=== PATIENT | male | born 1985 | race Caucasian/White ===

== ENCOUNTER 2021-04-22 17:35 | Emergency (ER) | payer OTHER, SELFPAY ==
--- NOTE | 2021-04-22 | ECG_ITS ---
Test Reason : GENERAL MEDICAL Blood Pressure : / mmHG Vent. Rate : 049 BPM Atrial Rate : 049 BPM P-R Int : 158 ms QRS Dur : 100 ms QT Int : 414 ms P-R-T Axes : 070 074 041 degrees QTc Int : 373 ms Sinus bradycardia with sinus arrhythmia Incomplete right bundle branch block Cannot rule out Anterior infarct , age undetermined Abnormal ECG No previous ECGs available Referred By: Generic ED Physician Electronically Signed By:SHIRLEY VELÁSQUEZ MD
[2021-04-22 18:43] VITALS: BP 155/89; PULSE 45; RESP 18; TEMP 36.6; O2SAT 100; BMI 23.7
[2021-04-22 19:27] LABS: MANUAL DIFF FLAG NO
[2021-04-22 19:37] LABS: Basophils Percent Auto 0.3 % (0-2); Eosinophils Absolute Auto 0.1 X10*3/uL (0.0-0.4); Eosinophils Percent Auto 1.6 % (0-4); Hematocrit 42.9 % (42-52); Hemoglobin 14.7 g/dl (14.0-18.0); Imm Gran Abs Auto 0.01 X10*3/uL (0.00-0.03); Imm Gran Pct Auto 0.2 % (0.0-0.4); Lymphocytes Absolute Auto 2.6 X10*3/uL (1.2-4.9); Mean Corpuscular HGB Conc 34.3 g/dl (31.0-36.0); Mean Corpuscular Hemoglobin 30.9 pg (27.0-33.0); Mean Corpuscular Volume 90.1 fL (80-98); Monocytes Absolute Auto 0.8 X10*3/uL (0.1-1.2); Monocytes Percent Auto 12.6 % (2-11); Neutrophils Absolute Auto 2.8 X10*3/uL (2.0-8.3); Neutrophils Percent Auto 44.3 % (45-73); Platelet Count 201 X10*3/uL (160-400); Red Blood Count 4.76 X10*6/uL (4.60-5.80); Red Cell Distribution Width 12.8 % (11.0-16.0); White Blood Count 6.4 X10*3/uL (4.8-10.8)
[2021-04-22 19:56] LABS: Alanine Aminotransferase 17 U/L (0-40); Albumin Level 4.8 g/dL (3.5-5.0); Alkaline Phosphatase 54 U/L (39-117); Anion Gap 12 (12-20); Aspartate Amino Transferase 20 U/L (5-37); Bilirubin Total 0.5 mg/dL (0.0-1.0); Blood Urea Nitrogen 12 mg/dL (9-16); Calcium 10.4 mg/dL (8.4-10.2); Carbon Dioxide 30 mmol/L (22-29); Chloride 103 mmol/L (96-108); Creatinine Clr Calc Pharmacy 109.9; Estimated Glomerular Filt Rate > 60; Glucose Random 91 mg/dL (60-115); Potassium 4.1 mmol/L (3.3-5.1); Sodium 141 mmol/L (135-145); Total Protein 7.2 g/dL (6.5-8.0)
[2021-04-22 23:11] LABS: Troponin-I High Sensitivity < 3.5 ng/L (<3.5-35.0)
--- NOTE | 2021-04-22 23:20 | ED_ITS ---
HPI - General Adult General Chief complaint: General Medical Stated complaint: vomiting Time Seen by Provider: 04/22/21 22:06 Source: patient Mode of arrival: ambulatory Limitations: no limitations History of Present Illness HPI narrative: Patient comes emergency room complaining of epigastric burning sensation, vomiting, decreased p.o. intake. Patient denies vomiting blood, no black stool. Patient admits that he drinks alcohol daily and his intake has gradually increased. Patient denies fever chills Related Data Previous Rx's Medication Instructions Recorded hyoscyamine sulfate 0.125 mg PO QID PRN #10 tab 04/23/21 ondansetron HCl [Zofran] 4 mg PO Q8H PRN #10 tab 04/23/21 Allergies Allergy/AdvReac Type Severity Reaction Status Date / Time No Known Allergies Allergy Verified 04/22/21 18:42 Review of Systems Review of Systems: Constitutional : No Weight loss, No Fever, No Chills, No Night Sweats, No Fatigue, No Malaise ENT/Mouth : No Hearing loss, No Ear Pain, No Nasal Congestion, No Sinus Pain, No Hoarseness, No sore throat, No Rhinorrhea, No Swallowing Difficulty Eyes: No Eye Pain, No Swelling, No Redness, No Foreign Body, No Discharge, No Vision Changes Cardiovascular : No Chest Pain, No SOB, No Dyspnea on Exertion, No Orthopnea, No Edema, No Palpitations Respiratory : No Cough, No Sputum, No Wheezing, No Smoke Exposure, No Dyspnea Gastrointestinal : Complaining of nausea and vomiting, No Diarrhea, No Constipation, complaining of epigastric burning sensation, No Hematochezia, No Melena Genitourinary : no irregular bleeding, No Dysuria, No Urinary Frequency, No Hematuria, No Urinary Incontinence, No Urgency, No Flank Pain, No Urinary Flow Changes, No Hesitancy Musculoskeletal : No joint pain, No Myalgias, No Joint Swelling Skin : No Skin Lesions, No rash Neuro : No Weakness, No Numbness, No Paresthesias, No Loss of Consciousness, No Dizziness, No Headache Psych : No Anxiety/Panic, No Depression, No SI/HI/AH/VH, No Social Issues, Heme/Lymph: No Bruising, No Bleeding,No Lymphadenopathy Endocrine : No Polyuria, No Polydipsia, No Temperature Intolerance PMFSH Past Medical History Medical History No pertinent past medical history Social History Social History Advance Directives: No Advance Directives Information Provided: No Physical Exam Vital Signs: Vital Signs: Last Vital Signs Temp 97.9 F 04/22/21 18:43 Pulse 45 L 04/22/21 18:43 Resp 18 04/22/21 18:43 BP 155/89 H 04/22/21 18:43 Pulse Ox 100 04/22/21 18:43 Body Mass Index 23.7 Appearance: Alert. Oriented X3. No acute distress. Well-appearing Eyes: Pupils equal, round and reactive to light. ENT: Pharynx normal. Neck: Normal inspection. Neck supple. No lymph nodes noted. No crepitus CVS: Normal heart rate and rhythm. Pulses normal. Normal S1 and S2 Respiratory: No respiratory distress. Breath sounds normal. No Wheezing. No rales Abdomen: Soft and nontender. No rigidity. No distention. good BS x4 Skin: Skin warm and dry. Normal skin color. Normal skin turgor. Extremities: No lower extremity edema. No Lacerations. No Rash Neuro: Oriented X 3. No motor deficit. No sensory deficit. Moving all extermities. No slurred speech. Course Course Course Narrative: Patient receive a GI cocktail, patient stay for he feels a bit better, still burping, no abdominal pain. Medical Decision Making Lab Data Result diagrams: 04/22/21 19:17 04/22/21 19:17 Labs: Lab Results 04/22/21 04/22/21 04/22/21 Range/Units 19:17 19:17 22:27 WBC 6.4 (4.8-10.8) X10*3/uL RBC 4.76 (4.60-5.80) X10*6/uL Hgb 14.7 (14.0-18.0) g/dl Hct 42.9 (42-52) % MCV 90.1 (80-98) fL MCH 30.9 (27.0-33.0) pg MCHC 34.3 (31.0-36.0) g/dl RDW 12.8 (11.0-16.0) % Plt Count 201 (160-400) X10*3/uL MPV 10.0 (9.4-12.4) fL Immature Gran % (Auto) 0.2 (0.0-0.4) % Neut % (Auto) 44.3 L (45-73) % Lymph % (Auto) 41.0 H (20-40) % [place] % (Auto) 12.6 H (2-11) % Eos % (Auto) 1.6 (0-4) % Baso % (Auto) 0.3 (0-2) % Lymph # (Auto) 2.6 (1.2-4.9) X10*3/uL [place] # (Auto) 0.8 (0.1-1.2) X10*3/uL Eos # (Auto) 0.1 (0.0-0.4) X10*3/uL Baso # (Auto) 0.0 (0.0-0.2) X10*3/uL Abs Immat Gran (auto) 0.01 (0.00-0.03) X10*3/uL Absolute Neuts (auto) 2.8 (2.0-8.3) X10*3/uL Absolute Nucleated RBC 0.000 (0.0-0.012) X10*3/uL Nucleated RBC % (auto) 0.0 (0.0-0.2) /100WBC Sodium 141 (135-145) mmol/L Potassium 4.1 (3.3-5.1) mmol/L Chloride 103 (96-108) mmol/L Carbon Dioxide 30 H (22-29) mmol/L Anion Gap 12 (12-20) BUN 12 (9-16) mg/dL Creatinine 1.01 (0.5-1.4) mg/dL Estim Creat Clear Calc 109.9 Estimated GFR > 60 Random Glucose 91 (60-115) mg/dL Calcium 10.4 H (8.4-10.2) mg/dL Total Bilirubin 0.5 (0.0-1.0) mg/dL AST 20 (5-37) U/L ALT 17 (0-40) U/L Alkaline Phosphatase 54 (39-117) U/L Troponin I High Sens < 3.5 (<3.5-35.0) ng/L Total Protein 7.2 (6.5-8.0) g/dL Albumin 4.8 (3.5-5.0) g/dL Discharge Plan Discharge Clinical Impression: Dyspepsia Patient Disposition: Home, Self-Care Instructions: Abdominal Pain (ED) Additional Instructions: Please follow-up with your primary care physician tomorrow. If you have any worsening or new symptoms, please return to the emergency room or call 911 Prescriptions: New hyoscyamine sulfate 0.125 mg tablet,disintegrating 0.125 mg PO QID PRN (Reason: dyspepsia) Qty: 10 RF: 0 ondansetron HCl [Zofran] 4 mg tablet 4 mg PO Q8H PRN (Reason: nausea and vomiting) Qty: 10 RF: 0
[2021-04-22] MEDS: Magnesium Hydrox/Alum Hydrox 30 ML ORAL.SUSP PO (23:44)
[2021-04-22] MEDS: Lidocaine HCl Viscous 2 % 15 ML SOLUTION MUCOUS MEM (23:45)
[2021-04-23 00:35] VITALS: BP 144/84; PULSE 61; RESP 16; TEMP 36.6; O2SAT 97
== END 2021-04-23 00:36 | disposition home or self-care (01) ==
PROVIDERS: Emergency Provider Emergency Medicine
DX: R10.13 Epigastric pain (principal)
CPT/HCPCS: 36415; 80053; 84484; 85025; 93005; 99283

== ENCOUNTER 2021-05-15 08:51 | Inpatient (IN) | payer OTHER, SELFPAY ==
[2021-05-15] VITALS (8 sets, daily range): BP systolic 125–140; BP diastolic 70–90; PULSE 38–50; RESP 13–18; TEMP 36.3–36.8; O2SAT 96–99; BMI 23.3
--- NOTE | ~2021-05-15 | XR_ITS ---
EXAMINATION: XR CHEST CLINICAL INFORMATION: Dizziness. Rule out pneumonia COMPARISON: None TECHNIQUE: Frontal view of the chest was obtained. FINDINGS: The lungs are well-expanded and clear of acute process. There is a 7 mm nodule left upper lobe and the fifth posterior interspace. Heart size and pulmonary vascularity is normal. No gross bony abnormality seen. XR/XR chest 1V IMPRESSION: No acute cardiopulmonary process seen. 5 mm nodule left upper lobe question artifact versus primary lung nodule. Further evaluation with lateral view and a lordotic view is recommended.
--- NOTE | ~2021-05-15 | MR_ITS ---
EXAMINATION: MR BRAIN WITHOUT CONTRAST CLINICAL INFORMATION: Dizziness. COMPARISON: None. TECHNIQUE: Multiplanar, multisequence imaging of the brain was performed without contrast. FINDINGS: No diffusion abnormalities are identified to suggest an acute or subacute infarct. The ventricles are normal in size. No mass effect or midline shift is seen. No brain parenchymal signal abnormality is noted. No extra-axial fluid collections are seen. The brainstem and cerebellum are normal. The gradient refocused acquisition is normal. The craniovertebral junction, marrow signal, and midline structures are normal. The major intracranial flow voids at the level of the [place] are preserved. The dural venous sinus flow voids are maintained. There are retention cysts in the dependent right maxillary sinus with mild ethmoid sinus mucosal thickening. The mastoid air cells are well aerated. MR/MR head/brain wo con IMPRESSION: Normal MRI of the brain. No acute process.
--- NOTE | 2021-05-15 09:54 | ECG_ITS ---
Test Reason : SOB Blood Pressure : / mmHG Vent. Rate : 035 BPM Atrial Rate : 035 BPM P-R Int : 170 ms QRS Dur : 098 ms QT Int : 468 ms P-R-T Axes : 070 070 036 degrees QTc Int : 357 ms Marked sinus bradycardia Possible Left atrial enlargement Incomplete right bundle branch block Abnormal ECG When compared with ECG of 22-APR-2021, Heart rate has decreased Referred By: Gordon Chisholm Electronically Signed By:GRETCHEN SCOTT
--- NOTE | 2021-05-15 09:56 | ED.DIZZY ---
HPI - Dizziness General Chief Complaint: Dizziness Stated Complaint: dizzy Time Seen by Provider: 05/15/21 09:54 Source: patient and family Mode of arrival: ambulatory Limitations: no limitations History of Present Illness HPI Narrative: 36-year-old male came in for evaluation of dizziness for few weeks. For the past 4-5 weeks patient been having dizziness/lightheadedness, almost going to faint, has no energy and lack of concentration, patient was seen and evaluated in the emergency department 3 weeks ago for similar symptoms. Patient was seen by his PCP recently and order CT scan of the head [address] is unremarkable. Patient normally drink alcohol daily has not been drinking for the past few days. Related Data Previous Rx's Medication Instructions Recorded hyoscyamine sulfate 0.125 mg 0.125 mg PO QID PRN #10 tab 04/23/21 disintegrating tablet ondansetron HCl 4 mg tablet 4 mg PO Q8H PRN #10 tab 04/23/21 (Zofran) Allergies Allergy/AdvReac Type Severity Reaction Status Date / Time No Known Allergies Allergy Verified 04/22/21 18:42 Review of Systems Review of Systems: All other systems are reviewed and are negative Constitutional: Reports as per HPI and Reports no additional constitutional complaints Eyes: Reports as per HPI and Reports no additional eye complaints Reports system reviewed and no additional complaints, except as documented Cardiovascular: Reports as per HPI and Reports no additional cardiovascular complaints Respiratory: Reports as per HPI and Reports no additional respiratory complaints Gastrointestinal: Reports as per HPI and Reports no additional gastrointestinal complaints Genitourinary: Reports no additional female genitourinary complaints Musculoskeletal: Reports no additional musculoskeletal complaints Skin/Breast: Reports system reviewed and no additional complaints, except as docu Psychiatric: Reports no additional psychiatric complaints Endocrine: Reports no additional endocrine complaints Hematologic/Lymphatic: Reports no additional hematologic/lymphatic complaints Allergic/Immunologic: Reports no additional allergic/immunologic complaints Reports system reviewed and no additional complaints, except as documented and Reports Abnormal speech present [facility] Past Medical History Medical History No pertinent past medical history Social History Social History Alcohol intake: current Alcohol intake frequency: 3 or more drinks per day Alcohol type: hard liquor Patient Tobacco Use Status: Current everyday Tobacco user Use of substances other than those prescribed or required for medical reasons: No Advance Directives: No Advance Directives Information Provided: Yes Physical Exam Vital Signs: Vital Signs: Last Vital Signs Temp 98.3 F 05/15/21 11:58 Pulse 38 L 05/15/21 11:58 Resp 13 05/15/21 11:58 BP 127/73 05/15/21 11:58 Pulse Ox 96 05/15/21 11:58 Body Mass Index 23.3 Vital signs have been reviewed as appeared to be correct. Blood pressure normal. Heart rate normal. Respiration rate normal. Temperature normal. Oxygen saturation normal. Appearance: Alert. Oriented X3. No acute distress. Head: Normal external exam. Normocephalic. Atraumatic. No Ruiz signs noted. No raccoon eyes noted Eyes: PERRLA. EOMI. Conjunctiva and sclera normal. Eyelids normal. ENT: TM's Normal. Pharynx normal. Uvula midline. Moist mucous membranes. No trismus noted. No drooling noted. No muffled voice noted. Neck: Normal inspection. Neck supple. FROM. No adenopathy. Thyroid Normal. No meningeal signs. No neck mass noted. CVS: Normal heart rate and rhythm. Heart sound normal. No murmurs noted. Pulses normal throughout. Respiratory: No respiratory distress. Painless inspiration. Breath sounds normal. No wheezes/rales/rhonchi noted. Chest nontender. No accessory muscle usage noted or decreased air movement noted. Abdomen: Soft and nontender. Bowel sounds normal in all 4 quadrants. No distention noted. No organomegaly noted. No visible injury noted. Back: No CVA tenderness. Full range of motion noted. Skin: Skin warm and dry. Normal skin color. Normal skin turgor. No rashes/lesions/lacerations noted. Extremities: No lower extremity edema. Extremities exhibit normal range of motion. Extremities nontender. Neuro: Oriented X 3. Cranial nerve exam: II-XII are grossly intact No motor deficit. No sensory deficit. Reflexes normal. Course Course Course Narrative: Assessment and plan. 36-year-old male came in with symptoms of dizziness and being dizzy. Patient found to be bradycardic while in the emergency department no medication that the patient is taking can cause bradycardia as a side effect. The case was discussed with Dr. Shaw who recommended to admit the patient for further cardiac monitoring. MDM - Dizziness Lab Data Attestation: I reviewed the patient's lab results. Result diagrams: 05/15/21 10:11 05/15/21 10:11 Labs: Lab Results 05/15/21 05/15/21 05/15/21 Range/Units 10:11 10:11 10:11 WBC 4.9 (4.8-10.8) X10*3/uL RBC 4.88 (4.60-5.80) X10*6/uL Hgb 15.1 (14.0-18.0) g/dl Hct 44.5 (42-52) % MCV 91.2 (80-98) fL MCH 30.9 (27.0-33.0) pg MCHC 33.9 (31.0-36.0) g/dl RDW 12.5 (11.0-16.0) % Plt Count 207 (160-400) X10*3/uL MPV 10.1 (9.4-12.4) fL Immature Gran % (Auto) 0.2 (0.0-0.4) % Neut % (Auto) 52.3 (45-73) % Lymph % (Auto) 34.0 (20-40) % [place] % (Auto) 10.9 (2-11) % Eos % (Auto) 2.0 (0-4) % Baso % (Auto) 0.6 (0-2) % Lymph # (Auto) 1.7 (1.2-4.9) X10*3/uL [place] # (Auto) 0.5 (0.1-1.2) X10*3/uL Eos # (Auto) 0.1 (0.0-0.4) X10*3/uL Baso # (Auto) 0.0 (0.0-0.2) X10*3/uL Abs Immat Gran (auto) 0.01 (0.00-0.03) X10*3/uL Absolute Neuts (auto) 2.6 (2.0-8.3) X10*3/uL Absolute Nucleated RBC 0.000 (0.0-0.012) X10*3/uL Nucleated RBC % (auto) 0.0 (0.0-0.2) /100WBC Sodium 142 (135-145) mmol/L Potassium 4.4 (3.3-5.1) mmol/L Chloride 106 (96-108) mmol/L Carbon Dioxide 28 (22-29) mmol/L Anion Gap 12 (12-20) BUN 11 (9-16) mg/dL Creatinine 1.02 (0.5-1.4) mg/dL Estim Creat Clear Calc 108.8 Estimated GFR > 60 Random Glucose 82 (60-115) mg/dL Calcium 9.8 (8.4-10.2) mg/dL Total Bilirubin 0.7 (0.0-1.0) mg/dL Direct Bilirubin 0.2 (0.0-0.5) mg/dL AST 16 (5-37) U/L ALT 17 (0-40) U/L Alkaline Phosphatase 49 (39-117) U/L Troponin I High Sens < 3.5 (<3.5-35.0) ng/L Total Protein 6.7 (6.5-8.0) g/dL Albumin 4.6 (3.5-5.0) g/dL Lipase 22 (8-78) U/L Imaging Data Chest x-ray: Radiologist's impression: No acute cardiopulmonary process seen. 5 mm nodule left upper lobe question artifact versus primary lung nodule. Further evaluation with lateral view and a lordotic view is recommended. ? ECG Data Interpretation: Marked sinus bradycardia at 35 beats per minute, normal axis deviation, incomplete right bundle branch block, no ST-T changes. Discharge Plan Discharge Clinical Impression: Bradycardia Patient Disposition: Admitted As Inpatient Prescriptions: No Action hyoscyamine sulfate 0.125 mg tablet,disintegrating 0.125 mg PO QID PRN (Reason: dyspepsia) Qty: 10 RF: 0 ondansetron HCl [Zofran] 4 mg tablet 4 mg PO Q8H PRN (Reason: nausea and vomiting) Qty: 10 RF: 0
[2021-05-15 10:21] LABS: MANUAL DIFF FLAG NO
[2021-05-15] MEDS: 0.9 % Sodium Chloride 1,000 ML 999 ML IVCONT (10:24)
[2021-05-15 10:28] LABS: Basophils Percent Auto 0.6 % (0-2); Eosinophils Absolute Auto 0.1 X10*3/uL (0.0-0.4); Hematocrit 44.5 % (42-52); Hemoglobin 15.1 g/dl (14.0-18.0); Imm Gran Abs Auto 0.01 X10*3/uL (0.00-0.03); Imm Gran Pct Auto 0.2 % (0.0-0.4); Lymphocytes Absolute Auto 1.7 X10*3/uL (1.2-4.9); Mean Corpuscular HGB Conc 33.9 g/dl (31.0-36.0); Mean Corpuscular Hemoglobin 30.9 pg (27.0-33.0); Mean Corpuscular Volume 91.2 fL (80-98); Mean Platelet Volume 10.1 fL (9.4-12.4); Monocytes Absolute Auto 0.5 X10*3/uL (0.1-1.2); Monocytes Percent Auto 10.9 % (2-11); Neutrophils Absolute Auto 2.6 X10*3/uL (2.0-8.3); Neutrophils Percent Auto 52.3 % (45-73); Platelet Count 207 X10*3/uL (160-400); Red Blood Count 4.88 X10*6/uL (4.60-5.80); Red Cell Distribution Width 12.5 % (11.0-16.0); White Blood Count 4.9 X10*3/uL (4.8-10.8)
[2021-05-15 10:53] LABS: Alanine Aminotransferase 17 U/L (0-40); Albumin Level 4.6 g/dL (3.5-5.0); Alkaline Phosphatase 49 U/L (39-117); Anion Gap 12 (12-20); Aspartate Amino Transferase 16 U/L (5-37); Bilirubin Direct 0.2 mg/dL (0.0-0.5); Bilirubin Total 0.7 mg/dL (0.0-1.0); Blood Urea Nitrogen 11 mg/dL (9-16); Calcium 9.8 mg/dL (8.4-10.2); Carbon Dioxide 28 mmol/L (22-29); Chloride 106 mmol/L (96-108); Creatinine Clr Calc Pharmacy 108.8; Estimated Glomerular Filt Rate > 60; Glucose Random 82 mg/dL (60-115); Lipase 22 U/L (8-78); Potassium 4.4 mmol/L (3.3-5.1); Sodium 142 mmol/L (135-145); Total Protein 6.7 g/dL (6.5-8.0)
[2021-05-15 10:59] LABS: Troponin-I High Sensitivity < 3.5 ng/L (<3.5-35.0)
[2021-05-15 14:03] LABS: Influenza A PCR NEGATIVE (Negative); Influenza B PCR NEGATIVE (Negative); Resp Syncy Virus RNA Qual PCR NEGATIVE (Negative); SARS COV2 PCR INHOUSE NEGATIVE (Negative)
[2021-05-15 14:16] LABS: Magnesium 2.3 mg/dL (1.6-2.6)
[2021-05-15 14:37] LABS: Thyroid Stimulating Hormone 1.44 uIU/mL (0.32-4.0)
--- NOTE | 2021-05-15 15:44 | PC.NURSE ---
Report given to [facility] RN
--- NOTE | 2021-05-15 16:45 | PC.NURSE ---
HR reaches as low as 32. Pt is not acutely symptomatic when this happens. He is generally dizzy and lightheaded all of the time.
[2021-05-15] MEDS: Dextrose 5 % and 0.9 % NaCl 1,000 ML 80 ML IVCONT (16:49)
[2021-05-15] MEDS: 0.9 % Sodium Chloride Flush 3 ML SYRINGE IVFLUSH ×2 (16:49→21:14)
[2021-05-15] MEDS: Nicotine 21 MG PATCH.TD24 TRANSDERMA (16:49)
--- NOTE | 2021-05-15 17:18 | HP_ITS ---
DATE OF SERVICE: 05/15/2021 CHIEF COMPLAINT: Dizziness. HISTORY OF PRESENTING ILLNESS: This is a 36-year-old gentleman, who presented to [facility] with ongoing symptoms of lightheadedness, shakiness, weakness for the last several days. According to the patient, he has history of syncope since young age. He has underwent extensive testing including sleep study, MRI of the brain, Holter monitor, and possibly EEG. All studies have been nonrevealing.prior to these episodes things become dark around him,he becomes nauseous, breathing becomes hard , he becomes dizzy,at times, he passes out with these episodes. It is triggered by lack of sleep. describes that at times he becomes very rigid. He had a similar episode on March 23 when he felt dizzy and he had a syncopal episode. He was walking to the couch and he passed out. noticed that his body was rigid,his color was purple,was noted to be short of breath. Symptoms lasted for several minutes. EMS arrived. The patient was noted to have questionable mild hypoxia,after event he was awake, alert, and was answering questions appropriately.,therefore, was not brought into Hospital,but for the last 5 days, he feels he is debilitated, feeling weak, mostly in bed, therefore decided to come for evaluation. In the ER, he has been noted to have bradycardia, heart rate 35, otherwise no pauses or ischemic changes noted. he denies any chest pain. He denies any palpitations. No shortness of breath. No recent bout of fever or chills. They recently visited [facility] tick infestation area. The patient denies any rashes, any ticks on the body. Due to significant symptoms of dizziness, fall, near syncope, and recent episode of syncope, the patient is being admitted for further monitoring and treatment. PAST MEDICAL HISTORY: Symptoms of presyncope, dizziness, and syncope since a young child with extensive negative workup in the past. All workup mostly done at [facility]. The patient had 1 visit at [facility] in 2014, when he had a head injury after a fall. He also had [address] at [facility] 2012 that was an unremarkable study. MEDICATIONS: He does not take any medications at home. SOCIAL HISTORY: He is . Lives with . He drinks more than 5 hard liquor drinks daily. His last drink was 5 days ago. He does not take any illicit drugs. He is a airborne and air delivery specialist. FAMILY HISTORY: There is no family history of premature coronary artery disease or syncope. MEDICATIONS: The patient is not on home medications. ALLERGIES: NO KNOWN DRUG ALLERGIES. 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 At present, he is not dizzy. CVS: No chest pain or palpitation. GI: No nausea or vomiting. He is complaining of feeling that his right-side drips are digging into his belly. MUSCULOSKELETAL: Complaining of pain behind the knee with radiation towards the left leg. Also complaining of pain in small joints of hands. Rest of all other systems are reviewed and negative. PHYSICAL EXAMINATION: GENERAL: Resting comfortably. Does not appear to be in acute distress. VITAL SIGNS: BP 127/73, pulse of 38, respiratory rate 13, temperature of 98.3, O2 saturation 96% on room air. HEENT: Pupils are equal, round, and reactive to light and accommodation. NECK: Supple. No increased JVD. LUNGS: Clear to auscultation bilaterally. HEART: Regular. Bradycardic. No murmurs appreciated. ABDOMEN: Soft. Nontender. No palpable masses. No guarding. No rigidity. Normal symmetrical bilateral ribcage. EXTREMITIES: Without clubbing, cyanosis, or edema. NEUROLOGIC: Nonfocal. PSYCH: Appropriate affect. LABORATORY DATA: Creatinine 1, potassium 4.4. Normal LFTs. Troponin less than 3.5. Lipase of 22. EKG; sinus bradycardia, otherwise no other acute ischemic changes, has incomplete right bundle-branch block. Chest x-ray showed no acute cardiopulmonary process. 5 mm nodule in left upper lobe. Question artifact versus primary pulmonary lungs nodule. ASSESSMENT AND PLAN: This is a 36-year-old gentleman with past medical history significant for recurrent episodes of lightheadedness, dizziness, and syncope going on since young age, presented to [facility] due to a recent episode of syncope in March 23 and now with 1-week history of feeling dizzy, nauseous, weak, mostly lying in bed. The patient recently evaluated by his primary care physician. Had a head CAT scan done at [facility], which as per the patient is negative. He also had blood work done as outpatient that did not show any acute abnormality. Due to ongoing symptoms and significant bradycardia, the patient is being admitted to [facility]. 1. Symptomatic bradycardia/dizziness. will admit to telemetry unit. We will check magnesium, calcium, TSH. We will obtain an echocardiogram. We will obtain Lyme titer. Obtain Cardiology consultation. We will give IV fluids. Question the patient has neurocardiogenic syncope, less likely seizure disorder. We will try to obtain old records from [facility]. Orthostatic blood pressures are negative. Obtain neuro consultation if above workup is negative, due to recent imaging studies hold off on repeat CT scan of head. 2. Deep vein thrombosis prophylaxis. will place the patient on compression boots. MD CHEKO Sidhu/ALBA / [id number] MTDD
--- NOTE | 2021-05-15 18:39 | PC.NURSE ---
Patient admitted to unit around 1645. at bedside. Patient high fall risk. Refuses socks, wishes to keep shoes on. Call short in place, instructed patient on how to use. Bed in lowest position, bed alarm on. Patient aware of pending cardiology consult. HR as low as 38 at this time, hospitalist aware. Will pass to oncoming RN.
[2021-05-15] MEDS: Acetaminophen 325 MG TABLET 650 MG PO (21:13)
[2021-05-15] MEDS: LORazepam 2 MG/ML VIAL 0.5 MG IVPUSH (21:13)
[2021-05-15 21:22] LABS: Glucose Urine UA NEG (NEG); Leukocyte Esterase Urine NEG (NEG); Nitrite Urine NEG (NEG); Urine Blood NEG (NEG); Urine Ketones NEG (NEG); Urine Protein NEG (NEG-TRACE)
[2021-05-15 21:23] LABS: Appearance Urine CLEAR; Color Urine YELLOW
[2021-05-15 21:47] LABS: Amphetamine Screen Urine Not Detected (Not Detect); Barbiturates, Urine Not Detected (Not Detect); Benzodiazepines Screen Urine Not Detected (Not Detect); Cannabinoid Screen Urine Not Detected (Not Detect); Cocaine Screen Urine Not Detected (Not Detect); Fentanyl, urine Not Detected (Not Detect); Opiate Screen Urine Not Detected (Not Detect); Phencyclidine Screen Urine Not Detected (Not Detect)
[2021-05-16 03:43] VITALS: BP 132/80; PULSE 41; RESP 16; TEMP 36.3; O2SAT 98
[2021-05-16] MEDS: Dextrose 5 % and 0.9 % NaCl 1,000 ML 80 ML IVCONT (04:54)
[2021-05-16 07:19] VITALS: BP 119/77; PULSE 44; RESP 18; TEMP 36.2; O2SAT 100
[2021-05-16] MEDS: Nicotine 21 MG PATCH.TD24 TRANSDERMA (09:03)
--- NOTE | 2021-05-16 09:04 | MHC.CM.PN ---
CM met with Patient at bedside. 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 Patient's goal is to return home, no services and CM has initiated and will follow for dc planning. PCP is Dr. Hernando Carias
[2021-05-16 11:10] VITALS: BP 129/74; PULSE 41; RESP 18; TEMP 36.6; O2SAT 98
--- NOTE | 2021-05-16 12:07 | PM.CNCAR ---
History of Present Illness History of Present Illness Date of Service: 05/16/21 Consult reason: other (bradycardia) Chief complaint: near syncope Narrative: This is a cardiology consultation regarding bradycardia. Patient had an episode in March where he got up in the morning as usual and is having his coffee and cigarette and somehow fell down on the floor. Momentary loss of consciousness. He has had such episodes approximately once an year or so since very young. He has been worked up in the past and apparently no cause found for this. Otherwise, he has had a few other episodes where he feels heart, dizzy, difficulty with vision even while driving and had to lathe puller. He is a heavy drinker and drinks about half a L of whiskey a day but in the last few weeks he has been trying to cut down that a bed. Otherwise, no known coronary disease myocardial infarction or any other cardiac issues. When he presented to the ER his heart rate was quite low in the 30s and 40s and that prompted the admission. He is not aware of his previous heart rates and if he has ever been told to be bradycardic or not. During the recent episode, there was no bowel or bladder incontinence but apparently is extremities do get some stiffness and also the are more like could be lifted up in space and stiff. Review of Systems Review of Systems: Yes all other systems are reviewed and are negative Cardiovascular: Cardiovascular: Reports as per HPI, Reports no additional cardiovascular complaints, Denies acrocyanosis, Denies cool extremities, Denies painful fingertips, Denies chest pain, Denies chest pain at rest, Denies diaphoresis, Denies syncope, Denies irregular heart rhythm, Denies claudication, Denies leg edema, Reports lightheadedness, Reports Loss of Consciousness, Denies palpitations and Denies dyspnea Respiratory: Respiratory: Denies dyspnea Neurologic: Denies syncope Endocrine: Endocrine: Denies palpitations [facility] Past Medical History Medical History No pertinent past medical history Family History Pertinent family history: No significant past medical history pertinent to the above. Social History Social History Household Members: Spouse and Children Housing: House Do you presently have visiting nurse or other home services: No Alcohol intake: current Alcohol intake frequency: 3 or more drinks per day Alcohol type: hard liquor Patient Tobacco Use Status: Current everyday Tobacco user Tobacco use type: Cigarette Cigarette Packs Per Day: 1 Cigarettes Per Day: 20.0 Smoked in Last 30 Days: Yes e-Cigarette/Vaping Use: Never Used Patient Interested in Nicotine Replacement: Yes Patient Given Instructions on How to Stop Smoking: No Second Hand Smoke Exposure: No Use of substances other than those prescribed or required for medical reasons: No Currently Displaying Signs/Symptoms of Drug Intoxication Withdrawal: No Any prior treatment program specific to substance use: No Have you been hit, kicked, punched, or otherwise hurt by someone within the past year? If so, by whom?: No Do you feel safe in your current relationship?: Yes Is there a partner from a previous relationship who is making you feel unsafe now?: No Are you made to feel afraid or neglected: No Advance Directives: No Advance Directives Information Provided: Yes Advance Directives on File: No Do you have thoughts of harming others: None Do you have a plan to hurt others: No Plan Recently lost weight without trying: Yes How much weight loss: 2-13 pounds Eating poorly because of decreased appetite: Yes Nutrition screen score: 4 Poor oral hygiene: No service: No Current occupational status: employed Meds Allergies Allergy/AdvReac Type Severity Reaction Status Date / Time No Known Allergies Allergy Verified 04/22/21 18:42 Active Medications: Current Medications Generic Name Dose Route Start Last Admin Trade Name Freq PRN Reason Stop Dose Admin Acetaminophen 650 mg 05/15/21 13:56 05/15/21 21:13 Acetaminophen 325 Mg Tablet PO 650 mg Q6H PRN Administration Pain, Mild (Pain Scale 1-3) Dextrose/Sodium Chloride 1,000 mls @ 80 mls/hr 05/15/21 14:00 05/16/21 04:54 D5ns IVCONT 80 mls/hr .[id number] PERFECTO Administration Nicotine 21 mg 05/15/21 16:10 05/16/21 09:03 Nicotine 21 Mg Patch.Td24 TRANSDERMA 21 mg DAILY PERFECTO Administration Ondansetron HCl 4 mg 05/15/21 13:56 Ondansetron Hcl 4 Mg/2 Ml Vial IVPUSH Q8H PRN Nausea and Vomiting Pharmacy Consult 1 each 05/15/21 12:35 Consult Rx Perform Med Rec MISCELLANE ONCE PRN Consult order Sodium Chloride 3 ml 05/15/21 16:00 05/16/21 08:07 0.9 % Sodium Chloride Flush 3 Ml Syringe IVFLUSH Not Given QSHIFT [facility] Physical Exam Vital Signs: Vital Signs: Last Vital Signs Temp 97.9 F 05/16/21 11:10 Pulse 41 L 05/16/21 11:10 Resp 18 05/16/21 11:10 BP 129/74 05/16/21 11:10 Pulse Ox 98 05/16/21 11:10 Body Mass Index 23.3 Const: General: cooperative and no acute distress HENMT: Other: Unremarkable Neck: Neck: Yes normal visual inspection Chest: Chest palpation & inspection: normal inspection of the chest Resp: Auscultation: clear to auscultation bilaterally, no crackles and no wheezes Cardio: Jugular venous distension: no JVD Palpation: normal PMI Heart sounds: S1 normal heart sound present, S2 normal heart sound present, no gallops, no murmurs and no rubs GI: Palpation (GI): Soft to palpation Back/Spine/Pelvis: Other: unremarkable Skin: General skin exam: no rashes or lesions noted Neuro: Cranial nerves: Yes Other cranial nerve findings present Extrem: General: Yes no clubbing, cyanosis or edema Psych: Mental Status: other Results Labs and Meds Result diagrams: 05/15/21 10:11 05/15/21 10:11 Lab results: Laboratory Results - last 24 hr 05/15/21 05/15/21 05/15/21 10:11 12:47 21:00 Magnesium 2.3 TSH 1.44 Urine Color YELLOW Urine Appearance CLEAR Urine pH 7.0 Ur Specific [place] 1.010 Urine Protein NEG Urine Glucose (UA) NEG Urine Ketones NEG Urine Blood NEG Urine Nitrite NEG Ur Leukocyte Esterase NEG Urine Opiates Screen Urine Fentanyl Screen Ur Barbiturates Screen Ur Phencyclidine Scrn Ur Amphetamines Screen U Benzodiazepines Scrn Urine Cocaine Screen U Marijuana (THC) Screen Coronavirus (PCR) NEGATIVE Influenza Type A (PCR) NEGATIVE Influenza Type B (PCR) NEGATIVE RSV RNA Qual (PCR) NEGATIVE 05/15/21 21:00 Magnesium TSH Urine Color Urine Appearance Urine pH Ur Specific [place] Urine Protein Urine Glucose (UA) Urine Ketones Urine Blood Urine Nitrite Ur Leukocyte Esterase Urine Opiates Screen Not Detected Urine Fentanyl Screen Not Detected Ur Barbiturates Screen Not Detected Ur Phencyclidine Scrn Not Detected Ur Amphetamines Screen Not Detected U Benzodiazepines Scrn Not Detected Urine Cocaine Screen Not Detected U Marijuana (THC) Screen Not Detected Coronavirus (PCR) Influenza Type A (PCR) Influenza Type B (PCR) RSV RNA Qual (PCR) ECG Interpretation: Admission EKG with sinus bradycardia, 35/Min; normal MN/QTc. Assessment and Plan (1) Sinus bradycardia: Status: Acute (2) Syncope and collapse: Status: Acute (3) Alcohol abuse: Status: Acute On telemetry, he is in sinus bradycardia with heart rates in the mid 40s. I ambulated him in the hallway and the ventricular rate went up to 60/Min. This suggests at normal chronotropic response. Overall, highly doubt the episodes are related to the bradycardia at all as they are highly nonspecific and the dizziness can even happen when he is turning his head. At this time, no indication for pacemaker. We could do a formal stress test at some to document the normal chronotropic response. Echocardiogram for any structural abnormalities. Neurology consultation to be considered. Discussed with . Will follow-up. Procedures Date of Service Date of Service: 05/16/21
--- NOTE | 2021-05-16 13:32 | P.PNIM_ITS ---
Subjective Subjective Date of Service: 05/16/21 Interval History: Feeling better this morning, feels weak, tele monitor showed heart rate in 40s no sinus pauses or arrhythmia noted. Review of Systems General no headache, no dizziness ,no fever chills. CVS no chest pain, no palpitation. Respiratory no cough, no sob Gastrointestinal no nausea no vomiting, no abdominal pain Physical Exam Vital Signs: Vital Signs: Last Vital Signs Temp 97.9 F 05/16/21 11:10 Pulse 41 L 05/16/21 11:10 Resp 18 05/16/21 11:10 BP 129/74 05/16/21 11:10 Pulse Ox 98 05/16/21 11:10 Body Mass Index 23.3 General resting comfortably,no acute distress. Neck supple no JVD. CVS regular rate rhythm, Respiratory lungs clear to auscultation, no respiratory distress, no wheeze, no rhonchi. Gastrointestinal abdomen soft, nontender, bowel sounds audible Extremities no edema. Neuro nonfocal ,patient moving all 4 extremity speech clear. Skin no rash Objective Data Current Medications Generic Name Dose Route Start Last Admin Trade Name Freq PRN Reason Stop Dose Admin Acetaminophen 650 mg 05/15/21 13:56 05/15/21 21:13 Acetaminophen 325 Mg Tablet PO 650 mg Q6H PRN Administration Pain, Mild (Pain Scale 1-3) Dextrose/Sodium Chloride 1,000 mls @ 80 mls/hr 05/15/21 14:00 05/16/21 04:54 D5ns IVCONT 80 mls/hr .[id number] PERFECTO Administration Nicotine 21 mg 05/15/21 16:10 05/16/21 09:03 Nicotine 21 Mg Patch.Td24 TRANSDERMA 21 mg DAILY PERFECTO Administration Ondansetron HCl 4 mg 05/15/21 13:56 Ondansetron Hcl 4 Mg/2 Ml Vial IVPUSH Q8H PRN Nausea and Vomiting Pharmacy Consult 1 each 05/15/21 12:35 Consult Rx Perform Med Rec MISCELLANE ONCE PRN Consult order Sodium Chloride 3 ml 05/15/21 16:00 05/16/21 08:07 0.9 % Sodium Chloride Flush 3 Ml Syringe IVFLUSH Not Given QSHIFT [facility] Labs CBC & Chem 7: 05/15/21 10:11 05/15/21 10:11 Labs: Laboratory Results - last 24 hr 05/15/21 05/15/21 05/15/21 10:11 12:47 21:00 Magnesium 2.3 TSH 1.44 Urine Color YELLOW Urine Appearance CLEAR Urine pH 7.0 Ur Specific [place] 1.010 Urine Protein NEG Urine Glucose (UA) NEG Urine Ketones NEG Urine Blood NEG Urine Nitrite NEG Ur Leukocyte Esterase NEG Urine Opiates Screen Urine Fentanyl Screen Ur Barbiturates Screen Ur Phencyclidine Scrn Ur Amphetamines Screen U Benzodiazepines Scrn Urine Cocaine Screen U Marijuana (THC) Screen Coronavirus (PCR) NEGATIVE Influenza Type A (PCR) NEGATIVE Influenza Type B (PCR) NEGATIVE RSV RNA Qual (PCR) NEGATIVE 05/15/21 21:00 Magnesium TSH Urine Color Urine Appearance Urine pH Ur Specific [place] Urine Protein Urine Glucose (UA) Urine Ketones Urine Blood Urine Nitrite Ur Leukocyte Esterase Urine Opiates Screen Not Detected Urine Fentanyl Screen Not Detected Ur Barbiturates Screen Not Detected Ur Phencyclidine Scrn Not Detected Ur Amphetamines Screen Not Detected U Benzodiazepines Scrn Not Detected Urine Cocaine Screen Not Detected U Marijuana (THC) Screen Not Detected Coronavirus (PCR) Influenza Type A (PCR) Influenza Type B (PCR) RSV RNA Qual (PCR) Assessment and Plan (1) Sinus bradycardia: Status: Acute (2) Alcohol abuse: Status: Acute (3) Syncope and collapse: Status: Acute Assessment and Plan: 36-year-old gentleman with past medical history significant for recurrent episodes of lightheadedness, dizziness, and syncope going on since young age, presented to [facility] due to a recent episode of syncope in March 23 and now with 1-week history of feeling dizzy, nauseous, weak, mostly lying in bed.? The patient recently evaluated by his primary care physician.Had a head CAT scan done at [facility], which as per the patient is negative.? He also had blood work done as outpatient that did not show any acute abnormality.? Due to ongoing symptoms and significant bradycardia, the patient is being admitted to [facility]. ? 1. Symptomatic bradycardia/dizziness/near syncope. ddx neurocardiogenic syncope/less likely seizure History of recurrent syncope Persistent bradycardia on tele monitor, no recurrent episode of near-syncope Normal electrolytes ,magnesium, calcium and TSH Seen by Dr. Shaw patient noted to have heart rate in 60s with ambulation suggestive of normal chronotropic response, Cardio recommend echocardiogram and neuro eval Patient recently had a CT head done at [facility] presumably negative Lyme titer pending DC IV fluid Normal neuro examination not suggestive of acute CVA, normal orthostatic studies, no postictal state will obtain neurology consultation 2. Alcohol abuse consume alcohol daily 5 drinks of hard liquor, gradually weaning, no evidence of withdrawal, continue CIWA, care team consult Deep vein thrombosis prophylaxis.? compression boots. ? Quality Stroke Does the patient have a stroke diagnosis?: No VTE Prior VTE?: No VTE Risk Level:: Medical - moderate - high VTE Device Contraindication: Treatment Not Indicated VTE Drug Contraindication: N/A - Med Ordered
[2021-05-16] MEDS: 0.9 % Sodium Chloride Flush 3 ML SYRINGE IVFLUSH ×2 (14:36→16:46)
[2021-05-16 15:09] VITALS: BP 144/77; PULSE 48; RESP 20; TEMP 36.4; O2SAT 98
--- NOTE | 2021-05-16 16:16 | MHC.RECOVSUP ---
Recovery Support note: Patient is a 36 year old Chinese speaking male who presented to [facility] ED and was medically admitted. This bond writer met with patient in to discuss his alcohol use and treatment options. Patient reports he was previously consuming half a liter of hard alcohol daily. Patient reports his consumption slowly increased over the past year due to staying at home more often. Patient reports he slowly reduced consumption to 5 drinks a night and that his last drink was on Monday. Patient expressed interest in hearing about the multiple pathways to recovery, stating I need to find something for me. Discussed outpatient therapy and intensive outpatient therapy with patient and provided patient information on these resources. Patient declined a referral to [facility], stating he will consider it and call for an appointment if he decides to move in that direction. Discussed AA, [facility] and [facility] [place] with patient and provided him with information on these resources. Patient expressed interest in meeting with a Batterboard Setter later on tonight if he is feeling up for it. Discussed medications for alcohol use disorder with patient. Patient expressed interest and accepted information on the [facility] and Vivitrol. Provided patient with contact information for this bond writer in the event that he has any questions regarding the resources discussed. Discussed case with patient's RN.
[2021-05-16] MEDS: Acetaminophen 325 MG TABLET 650 MG PO (16:59)
--- NOTE | 2021-05-16 18:38 | MHC.RECOVSUP ---
? Reason for consult Recovery Support o Current location: [facility] o Identified substance use concern: Alcohol - Support ? Intervention: o Community resources provided o Harm reduction discussion ? Plan: o Patient to follow up with [facility] after discharge ? Additional information: Met with Patient and we talk about recovery and Harm reduction... Patient was given Resources where he can get support on his recovery.
[2021-05-16 19:17] VITALS: BP 128/65; PULSE 41; RESP 20; TEMP 36.4; O2SAT 99
--- NOTE | 2021-05-16 22:31 | P.CNNE_ITS ---
History of Present Illness Data of Consult Service Date: 05/16/21 Primary Care Provider: Asya Whiting APRN [facility] Reason for consult: dizziness, weakness, syncope and bradycardia Chronic alcohol abuse. Recurrent syncope, recent weakness dizziness and syncope with seizure like episode a few days ago. Work up in the past normal. Recent head CT reported normal at [facility] Review of Systems Review of Systems: General no headache, no dizziness ,no fever chills. CVS no chest pain, no palpitation. Respiratory no cough, no sob Gastrointestinal no nausea no vomiting, no abdominal pain Yes all other systems are reviewed and are negative Cardiovascular: Cardiovascular: Reports as per HPI, Reports no additional cardiovascular complaints, Denies acrocyanosis, Denies cool extremities, Denies painful fingertips, Denies chest pain, Denies chest pain at rest, Denies diaphoresis, Denies syncope, Denies irregular heart rhythm, Denies claudication, Denies leg edema, Reports lightheadedness, Reports Loss of Consciousness, Denies palpitations and Denies dyspnea Respiratory: Respiratory: Denies dyspnea Neurologic: Denies syncope Endocrine: Endocrine: Denies palpitations PMF Past Medical History Medical History No pertinent past medical history Family History Pertinent family history: No significant past medical history pertinent to the above. Social History Social History Household Members: Spouse and Children Housing: House Do you presently have visiting nurse or other home services: No Alcohol intake: current Alcohol intake frequency: 3 or more drinks per day Alcohol type: hard liquor Patient Tobacco Use Status: Current everyday Tobacco user Tobacco use type: Cigarette Cigarette Packs Per Day: 1 Cigarettes Per Day: 20.0 Smoked in Last 30 Days: Yes e-Cigarette/Vaping Use: Never Used Patient Interested in Nicotine Replacement: Yes Patient Given Instructions on How to Stop Smoking: No Second Hand Smoke Exposure: No Use of substances other than those prescribed or required for medical reasons: No Currently Displaying Signs/Symptoms of Drug Intoxication Withdrawal: No Any prior treatment program specific to substance use: No Have you been hit, kicked, punched, or otherwise hurt by someone within the past year? If so, by whom?: No Do you feel safe in your current relationship?: Yes Is there a partner from a previous relationship who is making you feel unsafe now?: No Are you made to feel afraid or neglected: No Advance Directives: No Advance Directives Information Provided: Yes Advance Directives on File: No Do you have thoughts of harming others: None Do you have a plan to hurt others: No Plan Recently lost weight without trying: Yes How much weight loss: 2-13 pounds Eating poorly because of decreased appetite: Yes Nutrition screen score: 4 Poor oral hygiene: No service: No Current occupational status: employed Meds Allergies Allergy/AdvReac Type Severity Reaction Status Date / Time No Known Allergies Allergy Verified 04/22/21 18:42 Active Medications: Current Medications Generic Name Dose Route Start Last Admin Trade Name Freq PRN Reason Stop Dose Admin Acetaminophen 650 mg 05/15/21 13:56 05/16/21 16:59 Acetaminophen 325 Mg Tablet PO 650 mg Q6H PRN Administration Pain, Mild (Pain Scale 1-3) Nicotine 21 mg 05/15/21 16:10 05/16/21 09:03 Nicotine 21 Mg Patch.Td24 TRANSDERMA 21 mg DAILY PERFECTO Administration Ondansetron HCl 4 mg 05/15/21 13:56 Ondansetron Hcl 4 Mg/2 Ml Vial IVPUSH Q8H PRN Nausea and Vomiting Pharmacy Consult 1 each 05/15/21 12:35 Consult Rx Perform Med Rec MISCELLANE ONCE PRN Consult order Sodium Chloride 3 ml 05/15/21 16:00 05/16/21 16:46 0.9 % Sodium Chloride Flush 3 Ml Syringe IVFLUSH 3 ml QSHIFT PERFECTO Administration Physical Exam Vital Signs: Vital Signs: Last Vital Signs Temp 97.5 F 05/16/21 19:17 Pulse 41 L 05/16/21 19:17 Resp 20 05/16/21 19:17 BP 128/65 05/16/21 19:17 Pulse Ox 99 05/16/21 19:17 Body Mass Index 23.3 Const: General: cooperative and no acute distress HENMT: Other: Unremarkable Neck: Neck: Yes normal visual inspection Chest: Chest palpation & inspection: normal inspection of the chest Resp: Auscultation: clear to auscultation bilaterally, no crackles and no wheezes Cardio: Jugular venous distension: no JVD Palpation: normal PMI Heart sounds: S1 normal heart sound present, S2 normal heart sound present, no gallops, no murmurs and no rubs GI: Palpation (GI): Soft to palpation Back/Spine/Pelvis: Other: unremarkable Skin: General skin exam: no rashes or lesions noted Neuro: Other: Normal non focal neuro exam Cranial nerves: Yes Other cranial nerve findings present Extrem: General: Yes no clubbing, cyanosis or edema Psych: Mental Status: other Results Labs CBC & Chem 7: 05/15/21 10:11 05/15/21 10:11 Assessment and Plan (1) Sinus bradycardia: Status: Acute (2) Alcohol abuse: Status: Acute (3) Syncope and collapse: Status: Acute Probably cardiogenic syncope. Recom. Cardio consult, senior living cardiac monitoring. EEG and orthostatic BPs 36-year-old gentleman with past medical history significant for recurrent episodes of lightheadedness, dizziness, and syncope going on since young age, presented to [facility] due to a recent episode of syncope in March 23 and now with 1-week history of feeling dizzy, nauseous, weak, mostly lying in bed.? The patient recently evaluated by his primary care physician.Had a head CAT scan done at [facility], which as per the patient is negative.? He also had blood work done as outpatient that did not show any acute abnormality.? Due to ongoing symptoms and significant bradycardia, the patient is being admitted to [facility]. ? 1. Symptomatic bradycardia/dizziness/near syncope. ddx neurocardiogenic syncope/less likely seizure History of recurrent syncope Persistent bradycardia on tele monitor, no recurrent episode of near-syncope Normal electrolytes ,magnesium, calcium and TSH Seen by Dr. Shaw patient noted to have heart rate in 60s with ambulation suggestive of normal chronotropic response, Cardio recommend echocardiogram and neuro eval Patient recently had a CT head done at [facility] presumably negative Lyme titer pending DC IV fluid Normal neuro examination not suggestive of acute CVA, normal orthostatic studies, no postictal state will obtain neurology consultation 2. Alcohol abuse consume alcohol daily 5 drinks of hard liquor, gradually weaning, no evidence of withdrawal, continue CIWA, care team consult Deep vein thrombosis prophylaxis.? compression boots. ? Procedures Date of Service Date of Service: 05/16/21
[2021-05-16 23:38] VITALS: BP 123/62; PULSE 40; RESP 18; TEMP 36.7; O2SAT 98
[2021-05-17] VITALS (7 sets, daily range): BP systolic 118–141; BP diastolic 56–79; PULSE 38–100; RESP 18–20; TEMP 36.2–36.6; O2SAT 97–100
--- NOTE | 2021-05-17 | EEG_ITS ---
The waking background activity consists of a well-defined moderate voltage posterior 9 to 10 hertz alpha frequency that is seen symmetrically and attenuates well with eye opening while low-voltage fast frequencies predominant anteriorly. Photic stimulation is without activation. Hyperventilation was omitted. No sleep stages are identified. No focal, lateralizing, or paroxysmal discharges seen. IMPRESSION: This waking EEG is within normal limits. MD FERMÍN Hwang/ALBA / [id number]
[2021-05-17] MEDS: diphenhydrAMINE HCL 50 MG/ML VIAL 25 MG IVPUSH (00:25)
[2021-05-17] MEDS: 0.9 % Sodium Chloride Flush 3 ML SYRINGE IVFLUSH ×3 (07:57→21:04)
[2021-05-17] MEDS: Nicotine 21 MG PATCH.TD24 TRANSDERMA ×2 (07:57→21:02)
--- NOTE | 2021-05-17 09:00 | CA_ITS ---
Transthoracic Echocardiogram Patient (Last, First, Middle): Jeyson Beltran, Gender: Male Date of : 1985 Age: 36 Procedure Date: 05/17/2021 Procedure Type: Transthoracic Echocardiogram Location: [facility] [place] Height: 182.88 cm Weight: 77.57 kg BSA: 1.99 m2 Heart Rate: bpm BP: 119 / 56 mmHg Livestock Caretaker: Yluia MD: Macie Ruiz MD Symptoms: bradycardia Study Quality: Good ECG Rhythm: Sinus Conclusions: - The left ventricular systolic function is normal. The calculated ejection fraction is 66% by biplane method. - No obvious valvular pathology seen on this study. Findings Left Ventricle Normal left ventricular cavity size. There is normal left ventricular wall thickness. The left ventricular systolic function is normal. The calculated ejection fraction is 66% by biplane method. There is no evidence of regional wall motion abnormalities. Diastolic function is normal for age. Right Ventricle Normal right ventricular cavity size and systolic function. Atria Both atria are normal in size. Aortic Valve There is a normal trileaflet aortic valve. There is no aortic valve stenosis. There is no aortic valve regurgitation. Mitral Valve The mitral valve appears normal. There is no mitral valve regurgitation. There is no mitral valve stenosis. Pulmonic Valve The pulmonic valve was not well visualized. Tricuspid Valve Normal tricuspid valve structure. There is trace tricuspid valve regurgitation. The pulmonary artery systolic pressure is normal. Great Vessels The aortic annulus, sinuses of valsalva, asc aorta, and aortic arch are normal in size. Venous The inferior vena cava is normal in size and collapses greater than 50% with inspiration. Pericardium/Pleural There is no evidence of pericardial effusion. Prior Study Comparison No prior study available for comparison. Recommendations, Care & Conclusions No obvious valvular pathology seen on this study. Measurements 2D Linear Measurements RVIDd: 2.49 RVIDd Index: 1.25 IVSd: 0.78 0.6-0.9/0.6-1.0 cm LVIDd: 4.99 3.9-5.3/4.2-5.9 cm LVIDd Index: 2.51 2.4-3.2/2.2-3.1 cm/m2 LVIDs: 3.35 2.0-3.6 cm LVPWd: 1.02 0.7-1.1 cm Ao Root: 3.00 2.1-3.5 cm LA Diam: 3.20 2.7-3.8/3.0-4.0 cm LAIDs Index: 1.61 1.5-2.3 cm/m2 LV Mass: 196.06 67-162/88-224 g LV Mass Index: 98.52 43-95/49-115 g/m2 LVOT Diam: 2.40 3.0+(-)1.3 cm 2D Systolic Function EF 4C: 65.90 >55% EF 2C: 65.40 >55% EF BiP: 66.00 >55% Mitral Valve MV Pk E: 0.67 MV PK A: 0.42 MV Decel Time: 538.00 E/A: 1.60 E'Lateral: 16.00 E'Medial: 11.00 E/E' Med: 6.10 E/E' Lat: 4.20 Aortic Valve AoV Pk Elpidio: 1.28 AoV Mn Elpidio: 1.03 AoV VTI: 0.35 AoV Pk Grad: 7.00 Aov Mn Grad: 5.00 TRINITY Cont.VTI: 3.09 LVOT LVOT Pk Elpidio: 1.05 LVOT Mn Elpidio: 0.69 LVOT VTI: 0.24 LVOT Pk Grad: 4.00 LVOT Mn Grad: 2.00 LVOT Diam: 2.40 LVOT Area: 4.52 Diastolic Function MV Pk E: 0.67 MV Pk A: 0.42 E/A: 1.60 E'Medial: 11.00 E/E' Med: 6.10 E' Laterial: 16.00 E/E' Lat: 4.20 Right Ventricle TAPSE (mm): 34.00 TVS' Elpidio: 12.40 Tricuspid Valve TR Pk Elpidio: 2.24 TR Pk Grad: 20.00 RA Press: 3.00 RVSP: 23.00 Great Vessels Aorta Ao Root-2D: 3.00 2.0-3.7 cm Ao Asc: 3.30 2.1-3.4 cm Ao Arch: 3.00 Updated in Other Vendor System with Status of Final Richard Shaw MD electronically signed on 05/17/2021 10:17:14 AM with status of Final
--- NOTE | 2021-05-17 09:24 | CA_ITS ---
Acquisition Time: 2021-05-17 10:14:44 Total Exercise Time: 00:08:46 Test Indications: SYNCOPE, SOB Medications: SEE CHART Protocol: MIKAL Max HR: 126 BPM 68% of Pred: 183 BPM Max BP: 142/084 mmHG Max Work Load: 10.1 METS Exercise stress test using Mikal protocol, total of 8 min 46 sec. METS 10.10 and MAPHR up to 68%. Pt had no anginal sx, some lightheadeness at peak exercise that resolved in recovery. EKG with no arrhythmias, no ischemic changes however MAPHR up to 698%, suboptimal test. Referred By: Richard Shaw Overread By: Iqra aMlone NP
--- NOTE | 2021-05-17 09:55 | PM.PNCARD ---
Subjective Subjective Date of Service: 05/17/21 Interval history: No syncopal episodes but does not feel normal either. Review of Systems Review of Systems Yes all other systems are reviewed and are negative Cardiovascular: Reports as per HPI, Reports no additional cardiovascular complaints, Denies acrocyanosis, Denies cool extremities, Denies painful fingertips, Denies chest pain, Denies chest pain at rest, Denies diaphoresis, Denies syncope, Denies irregular heart rhythm, Denies claudication, Denies leg edema, Reports lightheadedness, Reports Loss of Consciousness, Denies palpitations and Denies dyspnea Respiratory: Denies dyspnea Denies syncope Endocrine: Denies palpitations Physical Exam Vital Signs: Last Vital Signs Temp 98 F 05/17/21 06:57 Pulse 48 L 05/17/21 06:57 Resp 18 05/17/21 06:57 BP 119/56 L 05/17/21 06:57 Pulse Ox 98 05/17/21 06:57 Body Mass Index 23.3 Const General: cooperative and no acute distress HENOH Other: Unremarkable Neck Neck: Yes normal visual inspection Chest Chest palpation & inspection: normal inspection of the chest Resp Auscultation: clear to auscultation bilaterally, no crackles and no wheezes Cardio Jugular venous distension: no JVD Palpation: normal PMI Heart sounds: S1 normal heart sound present, S2 normal heart sound present, no gallops, no murmurs and no rubs GI Palpation (GI): Soft to palpation Back/Spine/Pelvis Other: unremarkable Skin General skin exam: no rashes or lesions noted Neuro Cranial nerves: Yes Other cranial nerve findings present Extrem General: Yes no clubbing, cyanosis or edema Psych Mental Status: other Results Labs and Meds Result diagrams: 05/15/21 10:11 05/15/21 10:11 Progress Note: A&P Assessment and plan (1) Sinus bradycardia: Status: Acute (2) Syncope and collapse: Status: Acute (3) Alcohol abuse: Status: Acute Assessment and Plan: Overnight telemetry when he was sleeping with heart rates in the 30s. Now it is in the 40s. Yesterday, with ambulation, heart rate went up to about 60 or so. Otherwise, echocardiogram today assess for any structural abnormalities. A formal ETT to again assess for exercise tolerance. Also complete neurology evaluation. We will follow up with you. Fall Risk Details Current Medications: Current Medications Generic Name Dose Route Start Last Admin Trade Name Freq PRN Reason Stop Dose Admin Acetaminophen 650 mg 05/15/21 13:56 05/16/21 16:59 Acetaminophen 325 Mg Tablet PO 650 mg Q6H PRN Administration Pain, Mild (Pain Scale 1-3) Nicotine 21 mg 05/15/21 16:10 05/17/21 07:57 Nicotine 21 Mg Patch.Td24 TRANSDERMA 21 mg DAILY PERFECTO Administration Ondansetron HCl 4 mg 05/15/21 13:56 Ondansetron Hcl 4 Mg/2 Ml Vial IVPUSH Q8H PRN Nausea and Vomiting Pharmacy Consult 1 each 05/15/21 12:35 Consult Rx Perform Med Rec MISCELLANE ONCE PRN Consult order Sodium Chloride 3 ml 05/15/21 16:00 05/17/21 07:57 0.9 % Sodium Chloride Flush 3 Ml Syringe IVFLUSH 3 ml QSHIFT PERFECTO Administration Time Spent With Patient Time: Total time spent is greater than 50% in coordination of care (as documented) at patient's floor/unit and/or counseling patient: Time with patient: less than 15 minutes Progress Note: Quality Stroke Does the patient have a stroke diagnosis?: No Procedures Date of Service Date of Service: 05/17/21
--- NOTE | 2021-05-17 11:09 | MHC.CLN ---
re: consult will add ensure r/t poor po
[2021-05-17] MEDS: Acetaminophen 325 MG TABLET 650 MG PO (11:45)
--- NOTE | 2021-05-17 14:16 | PM.IMPN ---
Progress Note: A&P (1) Alcohol abuse: Status: Acute (2) Syncope and collapse: Status: Acute Assessment and Plan: 36-year-old gentleman with past medical history significant for recurrent episodes of lightheadedness, dizziness, and syncope going on since young age, presented to [facility] due to a recent episode of syncope in March 23 and now with 1-week history of feeling dizzy, nauseous, weak, mostly lying in bed.? The patient recently evaluated by his primary care physician.Had a head CAT scan done at [facility], which as per the patient is negative.? He also had blood work done as outpatient that did not show any acute abnormality.? Due to ongoing symptoms and significant bradycardia, the patient is being admitted to [facility]. ? Symptomatic bradycardia/dizziness/near syncope. History of recurrent syncope Persistent bradycardia on tele monitor, no recurrent episode of near-syncope ETT today, no anginal symptom, lightheadedness, arrythmia or ischemic changes Lyme titer pending DC IV fluid Neurology to follow obtain EEG, MRI to r/o neuro etiology Alcohol abuse consume alcohol daily 5 drinks of hard liquor no evidence of withdrawal, continue CIWA, care team consult Deep vein thrombosis prophylaxis.?? compression boots. ? Subjective Subjective Date of Service: 05/17/21 Interval History: Follow up syncope Physical Exam Vital Signs: Vital Signs: Last Vital Signs Temp 97.4 F 05/17/21 11:33 Pulse 42 L 05/17/21 11:33 Resp 18 05/17/21 11:33 BP 131/63 05/17/21 11:33 Pulse Ox 99 05/17/21 11:33 Body Mass Index 23.3 Appearing in no acute distress lung sounds are clear to auscultation heart regular rate rhythm, clear S1, S2 positive bowel sounds, abdomen is soft, nontender neuro patient is alert x3, no focal deficits Objective Data Current Medications Generic Name Dose Route Start Last Admin Trade Name Freq PRN Reason Stop Dose Admin Acetaminophen 650 mg 05/15/21 13:56 05/17/21 11:45 Acetaminophen 325 Mg Tablet PO 650 mg Q6H PRN Administration Pain, Mild (Pain Scale 1-3) Nicotine 21 mg 05/15/21 16:10 05/17/21 07:57 Nicotine 21 Mg Patch.Td24 TRANSDERMA 21 mg DAILY PERFECTO Administration Ondansetron HCl 4 mg 05/15/21 13:56 Ondansetron Hcl 4 Mg/2 Ml Vial IVPUSH Q8H PRN Nausea and Vomiting Pharmacy Consult 1 each 05/15/21 12:35 Consult Rx Perform Med Rec MISCELLANE ONCE PRN Consult order Sodium Chloride 3 ml 05/15/21 16:00 05/17/21 07:57 0.9 % Sodium Chloride Flush 3 Ml Syringe IVFLUSH 3 ml QSHIFT PERFECTO Administration Labs CBC & Chem 7: 05/15/21 10:11 05/15/21 10:11 Quality Stroke Does the patient have a stroke diagnosis?: No VTE Prior VTE?: No VTE Risk Level:: Medical - moderate - high VTE Device Contraindication: Treatment Not Indicated VTE Drug Contraindication: N/A - Med Ordered
--- NOTE | 2021-05-17 14:33 | P.PNNE_ITS ---
Subjective Subjective Date of Service: 05/17/21 Interval History: Follow up syncope . No syncopal episodes since March 23, 2021. Continues to feel weak and lightheaded and anxious at times as if he cannot breathe and feels there is something wrong with his eyes. He has had a history of vasovagal syncope and that was the diagnoses he was given since childhood. He would pass out with blood and needles. The last episode in March 2021 was witnessed by his and he had some slow jerking movements of his limbs, but it ended abruptly and he came out clear and said he was going to be fine. His never had cardiac issues before. He drinks daily 4 or 5 drinks a day. No definite history of seizures. A recent CAT scan was normal at [facility] Time (minutes): 0 Physical Exam Vital Signs: Vital Signs: Last Vital Signs Temp 97.4 F 05/17/21 11:33 Pulse 42 L 05/17/21 11:33 Resp 18 05/17/21 11:33 BP 131/63 05/17/21 11:33 Pulse Ox 99 05/17/21 11:33 Body Mass Index 23.3 Const: General: cooperative and no acute distress HENMT: Other: Unremarkable Neck: Neck: Yes normal visual inspection Chest: Chest palpation & inspection: normal inspection of the chest Resp: Auscultation: clear to auscultation bilaterally, no crackles and no wheezes Cardio: Jugular venous distension: no JVD Palpation: normal PMI Heart sounds: S1 normal heart sound present, S2 normal heart sound present, no gallops, no murmurs and no rubs GI: Palpation (GI): Soft to palpation Back/Spine/Pelvis: Other: unremarkable Skin: General skin exam: no rashes or lesions noted Neuro: Other: Normal non focal neuro exam Cranial nerves: Yes Other cranial nerve findings present Extrem: General: Yes no clubbing, cyanosis or edema Psych: Mental Status: other Objective Data Labs CBC & Chem 7: 05/15/21 10:11 05/15/21 10:11 Progress Note: A&P Assessment and plan (1) Sinus bradycardia: Status: Acute (2) Syncope and collapse: Status: Acute (3) Alcohol abuse: Status: Acute Assessment and Plan: Symptomatic bradycardia/dizziness/near syncope. History of recurrent syncope EEG is pending. In view off some of his other symptoms of visual disturbance and atypical features, an MRI of the brain without contrast is recommended to rule out anything else that might have an impact on the decision to implant a cardiac pacemaker. There are also significant components of anxiety which should be treated. ? Fall Risk Details Current Medications: Current Medications Generic Name Dose Route Start Last Admin Trade Name Freq PRN Reason Stop Dose Admin Acetaminophen 650 mg 05/15/21 13:56 05/17/21 11:45 Acetaminophen 325 Mg Tablet PO 650 mg Q6H PRN Administration Pain, Mild (Pain Scale 1-3) Nicotine 21 mg 05/15/21 16:10 05/17/21 07:57 Nicotine 21 Mg Patch.Td24 TRANSDERMA 21 mg DAILY PERFECTO Administration Ondansetron HCl 4 mg 05/15/21 13:56 Ondansetron Hcl 4 Mg/2 Ml Vial IVPUSH Q8H PRN Nausea and Vomiting Pharmacy Consult 1 each 05/15/21 12:35 Consult Rx Perform Med Rec MISCELLANE ONCE PRN Consult order Sodium Chloride 3 ml 05/15/21 16:00 05/17/21 07:57 0.9 % Sodium Chloride Flush 3 Ml Syringe IVFLUSH 3 ml QSHIFT PERFECTO Administration Time Spent With Patient Time: Total time spent is greater than 50% in coordination of care (as documented) at patient's floor/unit and/or counseling patient: Time with patient: 15 - 24 minutes Procedures Date of Service Date of Service: 05/17/21 Quality Stroke Does the patient have a stroke diagnosis?: No VTE Prior VTE?: No VTE Risk Level:: Medical - moderate - high VTE Device Contraindication: Treatment Not Indicated VTE Drug Contraindication: N/A - Med Ordered
[2021-05-17 17:06] LABS: Lyme Abs Screen <0.90 index
[2021-05-18 03:28] VITALS: BP 110/63; PULSE 40; RESP 15; TEMP 36.4; O2SAT 97
[2021-05-18 06:00] LABS: Hematocrit 41.3 % (42-52); Hemoglobin 14.4 g/dl (14.0-18.0); Mean Corpuscular HGB Conc 34.9 g/dl (31.0-36.0); Mean Corpuscular Hemoglobin 30.9 pg (27.0-33.0); Mean Corpuscular Volume 88.6 fL (80-98); Mean Platelet Volume 10.3 fL (9.4-12.4); Platelet Count 199 X10*3/uL (160-400); Red Blood Count 4.66 X10*6/uL (4.60-5.80); Red Cell Distribution Width 12.2 % (11.0-16.0); White Blood Count 6.3 X10*3/uL (4.8-10.8)
[2021-05-18 06:22] LABS: Anion Gap 12 (12-20); Blood Urea Nitrogen 16 mg/dL (9-16); Calcium 9.7 mg/dL (8.4-10.2); Carbon Dioxide 26 mmol/L (22-29); Chloride 107 mmol/L (96-108); Creatinine Clr Calc Pharmacy 127.5; Estimated Glomerular Filt Rate > 60; Glucose Random 90 mg/dL (60-115); Potassium 3.8 mmol/L (3.3-5.1); Sodium 141 mmol/L (135-145)
[2021-05-18 07:59] VITALS: BP 117/65; PULSE 43; RESP 18; TEMP 36.1; O2SAT 99
[2021-05-18] MEDS: 0.9 % Sodium Chloride Flush 3 ML SYRINGE IVFLUSH ×2 (11:01→15:24)
[2021-05-18 11:03] VITALS: BP 131/65; PULSE 47; RESP 18; TEMP 36.6; O2SAT 99
--- NOTE | 2021-05-18 11:10 | PM.PNCARD ---
Subjective Subjective Date of Service: 05/18/21 Interval history: No new complaints. Review of Systems Review of Systems Yes all other systems are reviewed and are negative Cardiovascular: Reports as per HPI, Reports no additional cardiovascular complaints, Denies acrocyanosis, Denies cool extremities, Denies painful fingertips, Denies chest pain, Denies chest pain at rest, Denies diaphoresis, Denies syncope, Denies irregular heart rhythm, Denies claudication, Denies leg edema, Reports lightheadedness, Reports Loss of Consciousness, Denies palpitations and Denies dyspnea Respiratory: Denies dyspnea Denies syncope Endocrine: Denies palpitations Physical Exam Vital Signs: Last Vital Signs Temp 97.9 F 05/18/21 11:03 Pulse 47 L 05/18/21 11:03 Resp 18 05/18/21 11:03 BP 131/65 05/18/21 11:03 Pulse Ox 99 05/18/21 11:03 Body Mass Index 23.3 Const General: cooperative and no acute distress HENMN Other: Unremarkable Neck Neck: Yes normal visual inspection Chest Chest palpation & inspection: normal inspection of the chest Resp Auscultation: clear to auscultation bilaterally, no crackles and no wheezes Cardio Jugular venous distension: no JVD Palpation: normal PMI Heart sounds: S1 normal heart sound present, S2 normal heart sound present, no gallops, no murmurs and no rubs GI Palpation (GI): Soft to palpation Back/Spine/Pelvis Other: unremarkable Skin General skin exam: no rashes or lesions noted Neuro Cranial nerves: Yes Other cranial nerve findings present Extrem General: Yes no clubbing, cyanosis or edema Psych Mental Status: other Results Labs and Meds Result diagrams: 05/18/21 05:26 05/18/21 05:26 Lab results: Laboratory Results - last 24 hr 05/16/21 05/18/21 05/18/21 05:04 05:26 05:26 WBC 6.3 RBC 4.66 Hgb 14.4 Hct 41.3 L MCV 88.6 MCH 30.9 MCHC 34.9 RDW 12.2 Plt Count 199 MPV 10.3 Absolute Nucleated RBC 0.000 Nucleated RBC % (auto) 0.0 Sodium 141 Potassium 3.8 Chloride 107 Carbon Dioxide 26 Anion Gap 12 BUN 16 Creatinine 0.87 Estim Creat Clear Calc 127.5 Estimated GFR > 60 Random Glucose 90 Calcium 9.7 Lyme Screen IgG & IgM <0.90 Lyme Progressive Test TNP Imaging Radiologist's impression: Impressions Brain MRI 05/17/21 20:25 IMPRESSION: Normal MRI of the brain. No acute process. Progress Note: A&P Assessment and plan (1) Sinus bradycardia: Status: Acute (2) Syncope and collapse: Status: Acute (3) Alcohol abuse: Status: Acute Assessment and Plan: Telemetry continues to show sinus bradycardia. Echocardiogram without any structural heart disease. In the stress test, there was normal chronotropic response and heart rate went up to almost 120/Min with exercise. Hence there is no indication for pacemaker at this time. May be discharged from cardiac standpoint. Outpatient 14 day monitor will be arranged. Will follow-up. Fall Risk Details Current Medications: Current Medications Generic Name Dose Route Start Last Admin Trade Name Freq PRN Reason Stop Dose Admin Acetaminophen 650 mg 05/15/21 13:56 05/17/21 11:45 Acetaminophen 325 Mg Tablet PO 650 mg Q6H PRN Administration Pain, Mild (Pain Scale 1-3) Nicotine 21 mg 05/15/21 16:10 05/18/21 11:01 Nicotine 21 Mg Patch.Td24 TRANSDERMA Not Given DAILY PERFECTO Ondansetron HCl 4 mg 05/15/21 13:56 Ondansetron Hcl 4 Mg/2 Ml Vial IVPUSH Q8H PRN Nausea and Vomiting Pharmacy Consult 1 each 05/15/21 12:35 Consult Rx Perform Med Rec MISCELLANE ONCE PRN Consult order Sodium Chloride 3 ml 05/15/21 16:00 05/18/21 11:01 0.9 % Sodium Chloride Flush 3 Ml Syringe IVFLUSH 3 ml QSHIFT PERFECTO Administration Time Spent With Patient Time: Total time spent is greater than 50% in coordination of care (as documented) at patient's floor/unit and/or counseling patient: Time with patient: less than 15 minutes Progress Note: Quality Stroke Does the patient have a stroke diagnosis?: No Procedures Date of Service Date of Service: 05/18/21
--- NOTE | 2021-05-18 15:09 | P.DS_ITS ---
DS: Providers Provider Date of Service: 05/18/21 Date of admission: 05/15/21 13:56 Date of discharge: 05/18/21 Primary care physician: Asya Whiting APRN Admitting clinician: Macie Ruiz Attending physician on admission: Macie Ruiz Consults: 05/15/21 13:58 Consult to Cardiology Routine Consulting Provider: Richard Shaw Reason for consultation: dizziness/bradycardia Has provider been notified: Yes 05/16/21 13:30 Consult to Neurology Routine Consulting Provider: [facility] Reason for consultation: dizziness near syncope Has provider been notified: No 05/16/21 13:44 Consult to Neurology Routine Consulting Provider: [facility] Reason for consultation: dizziness syncope Has provider been notified: No 05/16/21 13:45 Consult to Care Team Routine Comment: Reason for consultation: etoh Attending physician on discharge: Corky Padilla Discharging clinician: Doris Mcbride DS: Diagnosis Discharge Diagnosis (1) Pre-syncope: Status: Acute (2) Sinus bradycardia: Status: Acute (3) Alcohol abuse: Status: Acute DS: Medications Discharge Medications Home Medications: Previous Rx's Medication Instructions Recorded ondansetron HCl 4 mg tablet 4 mg PO Q8H PRN #10 tab 04/23/21 (Zofran) nicotine 21 mg/24 hr daily 21 mg TRANSDERMAL DAILY #14 ea 05/18/21 transdermal patch DS: Summary Hospital Course Hospital Course: This is a 36-year-old gentleman, who presented to [facility] with ongoing symptoms of lightheadedness, shakiness, weakness for the last several days. According to the patient, he has history of syncope since young age.? He has underwent extensive testing including sleep study, MRI of the brain, Holter monitor, and possibly EEG.? All studies have been nonrevealing.prior to these episodes things become dark around him,he becomes nauseous, breathing becomes hard , he becomes dizzy,at times, he passes out with these episodes.? It is triggered by lack of sleep.? describes that at times he becomes very rigid.? He had a similar episode on March 23 when he felt dizzy and he had a syncopal episode. He was walking to the couch and he passed out.? noticed that his body was rigid,his color was purple,was noted to be short of breath.? Symptoms lasted for several minutes.? EMS arrived.? The patient was noted to have questionable mild hypoxia,after event he was awake, alert, and was answering questions appropriately.,therefore, was not brought into Hospital,but for the last 5 days, he feels he is debilitated, feeling weak, mostly in bed, therefore decided to come for evaluation.? In the ER, he has been noted to have bradycardia, heart rate 35, otherwise no pauses or ischemic changes noted. He denies any chest pain.? He denies any palpitations.? No shortness of breath.? No recent bout of fever or chills.? They recently visited [facility] tick infestation [facility].? The patient denies any rashes, any ticks on the body.? Due to significant symptoms of dizziness, fall, near syncope, and recent episode of syncope, the patient is being admitted for further monitoring and treatment. ? Sinus bradycardia. Seen and evaluated by Cardiology. Echocardiogram showed preserved ejection fraction with no valvular abnormalities. Exercise stress test with no anginal symptoms, reported some lightheadedness at peak exercise that resolved in recovery, EKG showed no arrhythmia or ischemic changes. He had normal chronotropic response of heart rate up to 126, blood pressure 140/84. No other sign of infection. Brain CT was negative for acute abnormality within acceptable limits. He will follow-up with Cardiology likely have a Holter mo nitor as outpatient. Presyncope. Patient reported history of vasovagal syncope since he was a child. More recently having episodes of feeling weak, lightheadedness over the last several weeks. There is no documented loss of consciousness. Patient does report some component of anxiety as well, encouraged to seek therapy in follow- up with his primary care provider to discuss other options to treat his anxiety. Alcohol abuse. Patient has a long history of heavy alcohol use drinking more than 5 drinks of hard liquor a day in maybe possibly more. Reports his last drink was approximately 1 week ago. Encouraged to use stab drinking alcohol is this may also exacerbate feelings of weakness, tiredness and anxiety. Time Spent with Patient Time attestation: Total time spent providing and/or coordinating discharge services: Discharge coordination time: Greater than 30 minutes Quality: Stroke Does the patient have a stroke diagnosis?: No Physical Exam Vital Signs: Vital Signs: Last Vital Signs Temp 97.9 F 05/18/21 11:03 Pulse 47 L 05/18/21 11:03 Resp 18 05/18/21 11:03 BP 131/65 05/18/21 11:03 Pulse Ox 99 05/18/21 11:03 Body Mass Index 23.3 DS: Data Data Completed and Pending Labs on day of discharge: Laboratory Results - last 24 hr 05/16/21 05/18/21 05/18/21 05:04 05:26 05:26 WBC 6.3 RBC 4.66 Hgb 14.4 Hct 41.3 L MCV 88.6 MCH 30.9 MCHC 34.9 RDW 12.2 Plt Count 199 MPV 10.3 Absolute Nucleated RBC 0.000 Nucleated RBC % (auto) 0.0 Sodium 141 Potassium 3.8 Chloride 107 Carbon Dioxide 26 Anion Gap 12 BUN 16 Creatinine 0.87 Estim Creat Clear Calc 127.5 Estimated GFR > 60 Random Glucose 90 Calcium 9.7 Lyme Screen IgG & IgM <0.90 Lyme Progressive Test TNP Discharge Plan Discharge Anticipated Discharge Date/Time: 05/18/21 15:05 Patient Disposition: Home, Self-Care Discharge Diagnosis: Bradycardia Presyncope Referrals: Asya Whiting APRN [Primary Care Provider] - 1 Week Laverne Vanessa MD [Physician] - 1 Week Richard Shaw MD [Physician] - 1 Week (Holter monitor) Discharge Medications: New nicotine 21 mg/24 hr Patch 24 Hour 21 mg transdermal DAILY Qty: 14 RF: 0 Continued ondansetron HCl [Zofran] 4 mg tablet 4 mg PO Q8H PRN (Reason: nausea and vomiting) Qty: 10 RF: 0 Discontinued hyoscyamine sulfate 0.125 mg tablet,disintegrating 0.125 mg PO QID PRN (Reason: dyspepsia) Qty: 10 RF: 0 Discharge Orders: Discharge Order (Routine); Ordered 05/18/21 Ordered By: Doris Mcbride Diet: advance to usual diet Activity on Discharge: As tolerated Stand Alone Forms: Patient Portal Discharge page Care Plan Goals: No episodes of syncope Health Concerns: Bradycardia Presyncope Plan of Treatment: Follow-up with cardiology for Holter monitor Follow-up with her primary care provider as needed Stop drinking alcohol Stop using nicotine, use nicotine patches Assessment: See discharge summary
[2021-05-18] MEDS: LORazepam 0.5 MG TABLET PO (15:24)
[2021-05-18 15:29] VITALS: BP 133/67; PULSE 43; RESP 20; TEMP 36.4; O2SAT 99
== END 2021-05-18 17:39 | disposition home or self-care (01) | DRG 201 ==
LOC: HO.ED 12:35 → HO.EDOVER 14:02 → HO.IMC 15:17
PROVIDERS: Nurse Practitioner Acute Care; Admitting Provider Hospitalist; Emergency Provider Emergency Medicine; PCP Nurse Practitioner; Visit Provider Family Medicine
DX: R00.1 Bradycardia, unspecified (principal); F10.10 Alcohol abuse, uncomplicated; R55 Syncope and collapse; F17.210 Nicotine dependence, cigarettes, uncomplicated; Z20.822 Contact with and (suspected) exposure to COVID-19; Z71.6 Tobacco abuse counseling; Z79.899 Other long term (current) drug therapy
CPT/HCPCS: 0241U; 36415; 70551; 71045; 80048; 80076; 80307; 81003; 83690; 83735; 84443; 84484; 85025; 85027; 86617; 86618; 93005; 93017; 93306; 95816; 96360; 99219; 99284; 99285; J1200; J2060

== ENCOUNTER → 2021-05-31 14:54 | Outpatient (REF) | payer OTHER, SELFPAY ==
--- NOTE | 2021-05-31 15:01 | HM_ITS ---
Total monitoring time 14 days and 22 hours. Underlying rhythm is sinus. Minimum heart rate 34/Min. Maximum 135/Min. Average to 59/Min. About 27% of the time, heart rate less than 60/Min. About 1.85% of the time, heart rate greater than 100/Min. No significant daytime bradycardia. No atrial fibrillation, flutter, pauses or AV blocks. Very rare supraventricular and ventricular ectopy. At the time of patient symptom reporting dizziness/near syncope, rhythm was sinus with a ventricular rate of 54/Min. [facility]
== END ==
LOC: HO.CARD 14:54
PROVIDERS: PCP Internal Medicine; Visit Provider Internal Medicine
DX: R55 Syncope and collapse (principal)
CPT/HCPCS: 93246

== ENCOUNTER → 2021-07-21 14:32 | Outpatient (BNVA) | payer OTHER, SELFPAY | PROVIDERS: PCP Internal Medicine; Visit Provider Nurse Practitioner Family ==